=== PATIENT | male | born 1955 ===

== ENCOUNTER 2021-01-31 21:44 | Emergency (ER) | payer OTHER ==
--- OUTSIDE RECORDS SUMMARY | 2021-01-31 21:46 | XMS REPORT | Continuity of Care Document ---
:1955 [facility] Address [address] [place] [address] Care Team Providers Name Role Phone Juan Newman Attending Clinician Unavailable Sarah Smith Attending Clinician Unavailable ATILIO Attending Clinician Unavailable UNDEFINED Admitting Clinician Unavailable Payers Payer Name Policy Type Policy Number Effective Date Expiration Date S ource Problems Condition Condition Condition Status Onset Resolution Last Treating Co mments Source Name Details Category Date Date Treatment Clinician Date Primary Primary Problem Active Univers osteoarthr osteoarthr it y of itis of itis [facility] left knee left knee Phys ici ans Primary Primary Problem Active Univers osteoarthr osteoarthr it y of itis of is [facility] right knee right knee Ph ysici ans Allergies, Adverse Reactions, Alerts Allergy Allergy Status Severity Reaction(s) Onset Inactive Treating Comm ents Source Name Type Date Date Clinician No Known DA Active U 2020-0 [facility]15 [place] [facility] No Known DA Active U 2020-0 [facility] Allergie 10-15 [place] [facility] Medications Ordered Filled Start Stop Current Ordering Indication Dosage Frequency Signature Comments Components Source Medication Medication Date Date Medication? Clinician (SIG) Name Name Monovisc 88 Monovisc 88 Yes SALLIE DISPENSE Univers MG/4ML MG/4ML 3-01 TRIMBLE M.D. ONE KIT (1 ity of Intra-artic Intra-artic 00:00: SYRINGE [place] ular ular 00 4.0ML) TO Physici Solution Solution BE ans Prefilled Prefilled ADMINISTER Syringe Syringe ED BY CRICKET Moore PHYSICIAN Procedures Procedure Date / Time Performed Performing Clinician Sourc e [UTP] Ortho - 2018-02-28 00:00:00 [facility] Authorize Injection Physicians Plan of Care Planned Activity Planned Date Details Comments Source Diagnostic Test 2018-02-28 [UTP] Ortho - [facility] Pending 00:00:00 Authorize Injection Physicia ns [code = [UTP] Ortho - Authorize Injection] Encounters Start End Encounter Admission Attending Care Care Encounter Source Date/Time Date/Time Type Type Clinicians Facility Department ID 2019-10-16 2019-10-16 Outpatient YOON NewmanTO PAIN [id number] -20 [facility] 13:30:00 13:30:00 [facility] [place] [facility] 2019-09-02 2019-09-02 Outpatient YOON SmithTO RADI [id number] -20 [facility] 13:00:00 13:00:00 Ashok [id number] [place] [facility] 2019-08-26 2019-08-26 Outpatient YOON SmithTO RADI [id number] -20 [facility] 13:00:00 13:00:00 Ashok [id number] [place] [facility] 2017-10-03 2017-10-03 Appointmen SHWETA TRIMBLE UTP [id number] Univers 14:00:00 14:00:00 t; SALLIE TRIMBLE ity of MATTHEW, M.D. [place] M.D. Physici ans Results Test Description Test Time Test Comments Results Result Sourc e Comments - XR FLUORO FOR 2019-10-16 Patient Name: SPINE INJ 16:48:00 KB BRADLEY Unit No: [id number] EXAMS: CPT CODE: [id number] XR FLUORO FOR SPINE INJ 59500 LUMBAR EPIRADICULAR INJECTION REFERRAL PHYSICIAN: Ashok Smith M.D. PREOPERATIVE DIAGNOSIS: Lumbar Radiculitis POSTOPERATIVE DIAGNOSIS: Multilevel lumbar disc degeneration with spinal stenosis and bilateral lower extremity radicular pain PROCEDURES PERFORMED: Fluoroscopically guided needle localization of the bilateral L4, bilateral L5 and bilateral S1 spinal nerves with transforaminal epidurograms and epidural injection of local anesthetic and steroid. FINDINGS: Marked degeneration was seen at the L4-5 and L5-S1 discs. Very tight flow seen through the bilateral L4-5 and L5-S1 foramen. Flow was limited in the epidural space in the lateral recesses and centrally. Provocation with injection was negative. Anesthetic response was positive with the patient noting complete relief of his bilateral low back and radiating pain. Preinjection VAS 4/10. Postinjection VAS 0/10. Steroid response pending follow-up. ESTIMATED BLOOD LOSS: Minimal ANESTHESIA: TIVA COMPLICATIONS: None DETAILS OF PROCEDURE: After obtaining stable vital signs, informed consent and IV access, with no contraindications, the patient was taken to the operating room and placed in a prone position with all extremities padded and appropriate monitors placed. The patient was sterilely prepped and draped over the lumbosacral spine. Using fluoroscopic visualization the insertion sites were marked for paravertebral approaches and using standard technique, a 25 gauge needle was advanced to the base of each pedicle without paresthesias. Isovue-300 contrast 0.2 mL of was injected incrementally with frequent negative aspirations to produce each epidurogram. There were no signs of intravascular or intrathecal uptake. Bupivicaine 0.75% 0.25 mL with lidocaine 4% 0.5 mL and Decadron 4 mg was then incrementally injected with frequent negative aspirations and again there were no signs of intravascular or intrathecal uptake. The needles were removed and the patient was taken to the PACU in good condition. at 5511 Reported and signed by: Santiago Newman M.D. CC: Technologist: Darya Michael(R) Transcribed D/ (3408) Nini.[facility] NAME: KB BRADLEY JR [address] [facility] PHYS: Santiago Muro MD [place], [place] [address] : 1955 AGE: 63 SEX: M LOC: EmelinaLUCIA PHONE #: [phone] EXAM DATE: 10/16/2019 STATUS: REG [facility] FAX #: [phone] RAD #: D/C DT PAGE 1 Signed Report Patient Name: KB BRADLEY ADAM HELMS Unit No: [id number] EXAMS: CPT CODE: [id number] XR FLUORO FOR SPINE INJ 73076 <Continued> Orig Print D/T: S: 10/16/2019 (3531) [place] [facility] NAME: KB BRADLEY JR [address] [facility] PHYS: Santiago Muro MD [place], [place] [address] : 1955 AGE: 63 SEX: M LOC: DUTCH PHONE #: [phone] EXAM DATE: 10/16/2019 STATUS: REG SDC FAX #: [phone] RAD #: D/C DT PAGE 2 Signed Report - XR ORBITS 4 + V 2019-09-02 Patient Name: 16:56:00 KB BRADLEY JR Unit No: [id number] EXAMS: CPT CODE: [id number] XR ORBITS 4 + V 60024 MRI OF THE LUMBAR SPINE: DIAGNOSIS: 1. At L1-2, moderate disc degeneration. Mild disc bulging. Mild central canal stenosis. Moderate left foraminal and mild right foraminal stenosis. 2. At L2-3, moderate disc degeneration. 2 mm of retrolisthesis of L2 on L3. Mild disc bulging. Mild central canal stenosis. Moderate bilateral facet arthropathy. Moderate bilateral foraminal stenosis. 3. At L3-4, moderate disc degeneration. 2 mm disc bulge. Mild central canal stenosis. Mild bilateral facet arthropathy. Mild bilateral foraminal stenosis 4. At L4-5, mild to moderate disc degeneration. 3 mm right posterior lateral disc protrusion. Mild to moderate central canal stenosis. Moderate bilateral facet arthropathy. Moderate to marked right foraminal moderate left foraminal stenosis. 5. At L5-S1, moderate disc degeneration. Grade 1 spondylolisthesis of L5 on S1. 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 No central canal stenosis. Marked right foraminal stenosis mild to moderate left foraminal stenosis COMMENT: COMPARISON: No prior exams available. Sagittal T1, T2 and STIR and axial T1 and T2-weighted sequences are obtained of the lumbar spine. The lumbar vertebrae are within normal limits in signal. The findings are as above. The conus is in the expected location. 7 VIEW LUMBAR SPINE WITH FLEXION AND EXTENSION COMMENT: Grade 1 spondylolisthesis of L5 on S1. This is slightly more pronounced in the flexed position. Moderate degeneration lumbar discs. Pedicles and transverse processes are intact. SI joints are within normal limits. Hip joints are within normal limits. AP AND LATERAL VIEW OF THE ORBITS COMMENT: No evidence of metal fragments are seen within the orbits. [facility] NAME: KB BRADLEY JR [address] [facility] PHYS: Ashok Valdovinos MD : 1955 AGE: 63 SEX: M [place], [place] [address] LOC: Y.MRI PHONE #: [phone] EXAM DATE: 09/02/2019 STATUS: REG CLI FAX #: [phone] RAD #: D/C DT PAGE 1 Signed Report (CONTINUED) Patient Name: KB BRADLEY JR Unit No: [id number] EXAMS: CPT CODE: [id number] XR ORBITS 4 + V 72020 <Continued> at 1656 Reported and signed by: Teresa Steiner MD CC: Ashok Smith M.D. Technologist: RT Naeem.(R) Transcribed D/ (1655) [id number] [facility] NAME: KB BRADLEY JR [address] [facility] PHYS: Ashok Valdovinos MD : 1955 AGE: 63 SEX: M [place] [address] LOC: Y.MRI PHONE #: [phone] EXAM DATE: 09/02/2019 STATUS: REG CLI FAX #: [phone] RAD #: D/C DT PAGE 2 Signed Report Patient Name: KB BRADLEY JR Unit No: [id number] EXAMS: CPT CODE: [id number] XR ORBITS 4 + V 64708 <Continued> Orig Print D/T: S: 09/02/2019 (1658) [facility] NAME: KB BRADLEY JR [address] [facility] PHYS: Ashok Valdovinos MD : 1955 AGE: 63 SEX: M [place], [place] [address] LOC: Y.MRI PHONE #: [phone] EXAM DATE: 09/02/2019 STATUS: REG CLI FAX #: [phone] RAD #: D/C DT PAGE 3 Signed Report - XR L-SPINE 2019-09-02 Patient Name: W/BEND VIEW 16:56:00 KB BRADLEY JR Unit No: [id number] EXAMS: CPT CODE: [id number] XR L-SPINE W/BEND VIEW 51184 MRI OF THE LUMBAR SPINE: DIAGNOSIS: 1. At L1-2, moderate disc degeneration. Mild disc bulging. Mild central canal stenosis. Moderate left foraminal and mild right foraminal stenosis. 2. At L2-3, moderate disc degeneration. 2 mm of retrolisthesis of L2 on L3. Mild disc bulging. Mild central canal stenosis. Moderate bilateral facet arthropathy. Moderate bilateral foraminal stenosis. 3. At L3-4, moderate disc degeneration. 2 mm disc bulge. Mild central canal stenosis. Mild bilateral facet arthropathy. Mild bilateral foraminal stenosis 4. At L4-5, mild to moderate disc degeneration. 3 mm right posterior lateral disc protrusion. Mild to moderate central canal stenosis. Moderate bilateral facet arthropathy. Moderate to marked right foraminal moderate left foraminal stenosis. 5. At L5-S1, moderate disc degeneration. Grade 1 spondylolisthesis of L5 on S1. 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 No central canal stenosis. Marked right foraminal stenosis mild to moderate left foraminal stenosis COMMENT: COMPARISON: No prior exams available. Sagittal T1, T2 and STIR and axial T1 and T2-weighted sequences are obtained of the lumbar spine. The lumbar vertebrae are within normal limits in signal. The findings are as above. The conus is in the expected location. 7 VIEW LUMBAR SPINE WITH FLEXION AND EXTENSION COMMENT: Grade 1 spondylolisthesis of L5 on S1. This is slightly more pronounced in the flexed position. Moderate degeneration lumbar discs. Pedicles and transverse processes are intact. SI joints are within normal limits. Hip joints are within normal limits. AP AND LATERAL VIEW OF THE ORBITS COMMENT: No evidence of metal fragments are seen within the orbits. [facility] NAME: KB BRADLEY [address] [facility] PHYS: Ashok Valdovinos MD : 1955 AGE: 63 SEX: M [place] [address] LOC: Y.MRI PHONE #: [phone] EXAM DATE: 09/02/2019 STATUS: REG CLI FAX #: [phone] RAD #: D/C DT PAGE 1 Signed Report (CONTINUED) Patient Name: KB BRADLEY JR Unit No: [id number] EXAMS: CPT CODE: [id number] XR L-SPINE W/BEND VIEW 63469 <Continued> at 1656 Reported and signed by: Teresa Steiner MD CC: Ashok Smith M.D. Technologist: RT Naeem.(R) Transcribed D/ (1655) JodieG [facility] NAME: KB BRADLEY JR [address] [facility] PHYS: Ashok Valdovinos MD : 1955 AGE: 63 SEX: M [place] [address] LOC: Y.MRI PHONE #: [phone] EXAM DATE: 09/02/2019 STATUS: REG CLI FAX #: [phone] RAD #: D/C DT PAGE 2 Signed Report Patient Name: KB BRADLEY JR Unit No: [id number] EXAMS: CPT CODE: [id number] XR L-SPINE W/BEND VIEW 77672 <Continued> Orig Print D/T: S: 09/02/2019 (1658) [facility] NAME: KB BRADLEY JR [address] [facility] PHYS: Ashok Valdovinos MD : 1955 AGE: 63 SEX: M [place] [address] LOC: Y.MRI PHONE #: [phone] EXAM DATE: 09/02/2019 STATUS: REG CLI FAX #: [phone] RAD #: D/C DT PAGE 3 Signed Report - MRI L-SPINE W/O 2019-09-02 Patient Name: CONT 16:56:00 KB BRADLEY JR Unit No: [id number] EXAMS: CPT CODE: [id number] MRI L-SPINE W/O CONT 01233 MRI OF THE LUMBAR SPINE: DIAGNOSIS: 1. At L1-2, moderate disc degeneration. Mild disc bulging. Mild central canal stenosis. Moderate left foraminal and mild right foraminal stenosis. 2. At L2-3, moderate disc degeneration. 2 mm of retrolisthesis of L2 on L3. Mild disc bulging. Mild central canal stenosis. Moderate bilateral facet arthropathy. Moderate bilateral foraminal stenosis. 3. At L3-4, moderate disc degeneration. 2 mm disc bulge. Mild central canal stenosis. Mild bilateral facet arthropathy. Mild bilateral foraminal stenosis 4. At L4-5, mild to moderate disc degeneration. 3 mm right posterior lateral disc protrusion. Mild to moderate central canal stenosis. Moderate bilateral facet arthropathy. Moderate to marked right foraminal moderate left foraminal stenosis. 5. At L5-S1, moderate disc degeneration. Grade 1 spondylolisthesis of L5 on S1. 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 No central canal stenosis. Marked right foraminal stenosis mild to moderate left foraminal stenosis COMMENT: COMPARISON: No prior exams available. Sagittal T1, T2 and STIR and axial T1 and T2-weighted sequences are obtained of the lumbar spine. The lumbar vertebrae are within normal limits in signal. The findings are as above. The conus is in the expected location. 7 VIEW LUMBAR SPINE WITH FLEXION AND EXTENSION COMMENT: Grade 1 spondylolisthesis of L5 on S1. This is slightly more pronounced in the flexed position. Moderate degeneration lumbar discs. Pedicles and transverse processes are intact. SI joints are within normal limits. Hip joints are within normal limits. AP AND LATERAL VIEW OF THE ORBITS COMMENT: No evidence of metal fragments are seen within the orbits. [facility] NAME: KB BRADLEY ADAM HELMS [address] [facility] PHYS: Ashok Valdovinos MD : 1955 AGE: 63 SEX: M [place], [place] [address] LOC: Y.MRI PHONE #: [phone] EXAM DATE: 09/02/2019 STATUS: REG CLI FAX #: [phone] RAD #: D/C DT PAGE 1 Signed Report (CONTINUED) Patient Name: KB BRADLEY JR Unit No: [id number] EXAMS: CPT CODE: [id number] MRI L-SPINE W/O CONT 50114 <Continued> at 1656 Reported and signed by: Teresa Steiner MD CC: Ashok Smith M.D. Technologist: Fernanda Felix(R) Transcribed D/ (1655) JodieG [facility] NAME: KB BRADLEY JR [address] [facility] PHYS: Ashok Valdovinos MD : 1955 AGE: 63 SEX: M [place] [address] LOC: Y.MRI PHONE #: [phone] EXAM DATE: 09/02/2019 STATUS: REG CLI FAX #: [phone] RAD #: D/C DT PAGE 2 Signed Report Patient Name: KB BRADLEY JR Unit No: [id number] EXAMS: CPT CODE: [id number] MRI L-SPINE W/O CONT 98788 <Continued> Orig Print D/T: S: 09/02/2019 (4618) [facility] NAME: KB BRADLEY JR [address] [facility] PHYS: Ashok Valdovinos MD : 1955 AGE: 63 SEX: M [place] [address] LOC: Y.MRI PHONE #: [phone] EXAM DATE: 09/02/2019 STATUS: REG CLI FAX #: [phone] RAD #: D/C DT PAGE 3 Signed Report
[2021-01-31] MEDS ORDERED: MORPHINE 4 MG/ML SYR ONE (23:08)
[2021-01-31] MEDS ORDERED: ONDANSETRON 4 MG/2 ML VIAL ONE (23:09)
[2021-01-31 23:55] LABS: Absolute Lymphocytes (CBC) 2.3 K/uL (0.7-4.9); Basophils % 1.2 % (0-1.3); Hematocrit 41.7 % (39.6-49.0); Lymphocytes % 32.5 % (15.3-44.8); MPV 9.5 fL (7.6-11.3)
[2021-02-01 00:06] LABS: Albumin 3.6 g/dL (3.4-5.0); Bilirubin Direct 0.2 mg/dL (0-0.2); Bilirubin Total 0.5 mg/dL (0.2-1.0); Potassium 3.8 mmol/L (3.5-5.1); Protein, Total 7.5 g/dL (6.4-8.2)
[2021-02-01] MEDS ORDERED: MEPERIDINE HCL 25 MG/ML SYR ONE (00:20)
[2021-02-01 00:41] LABS: Blood Morphology Comment NOT SEEN (NOT SEEN); Platelet Estimate ADEQ; White Blood Cell Scan OK (OK)
[2021-02-01] MEDS ORDERED: NA CHLORIDE 0.9% 1,000 ML ONE (00:42)
[2021-02-01] MEDS ORDERED: FENTANYL CITR 100 MCG/2 ML ONE (00:44)
[2021-02-01 01:02] LABS: Urine Blood Trace-intact (Negative); Urine Glucose Trace (Negative); Urine Protein Negative (Negative); Urine pH 6.5 (5.0-7.0)
--- NOTE | 2021-02-01 02:02 | ER ---
Nurse's Notes [facility] Name: Eugene Phillip Jr Age: 65 yrs Sex: Male : 1955 Arrival Date: 01/31/2021 Time: 21:54 Bed 24 Private MD: Diagnosis: Kidney Stone/ Calculus in urethra;Hydronephrosis with renal and ureteral calculous obstruction;Renal insufficiency Presentation: 01/31 21:58 Chief complaint: Patient states: I began having pain this evening around 1900 in my ld1 left flank. Constant urge to urinate X 1 day. Coronavirus screen: At this time, the client does not indicate any symptoms associated with coronavirus-19. Ebola Screen: No symptoms or risks identified at this time. Initial Sepsis Screen: Does the patient meet any 2 criteria? No. Patient's initial sepsis screen is negative. Does the patient have a suspected source of infection? No. Patient's initial sepsis screen is negative. Risk Assessment: Do you want to hurt yourself or someone else? Patient reports no desire to harm self or others. Onset of symptoms was January 31, 2021. 21:58 Method Of Arrival: Ambulatory ld1 21:58 Acuity: ALESHA 4 ld1 23:00 Acuity: ALESHA 3 lp1 Triage Assessment: 21:59 General: Appears in no apparent distress. comfortable. Pain: Complains of pain in left ld1 low back. Respiratory: Airway is patent Respiratory effort is even, unlabored. 02/01 01:20 General: Behavior is cooperative, restless. sv1 Historical: - Allergies: 01/31 21:59 No Known Allergies; ld1 - Home Meds: 21:59 levothyroxine oral [Active]; gabapentin oral [Active]; Norvasc 5 mg Oral tab 1 tab once ld1 daily [Active]; - PMHx: 21:59 Hypertensive disorder; Hypercholesterolemia; neuropathy; Hypothyroidism; ld1 - PSHx: 21:59 None; ld1 - Immunization history:: Adult Immunizations up to date, Client reports receiving the 2nd dose of the Covid vaccine. - Social history:: Smoking status: Patient denies any tobacco usage or history of. Patient/guardian denies using alcohol. Screenin/21 01:18 Abuse screen: none. Nutritional screening: No deficits noted. Tuberculosis screening: sv1 No symptoms or risk factors identified. Fall Risk None identified. Assessment: 01:18 Reassessment: The patient's pain is finally relieved. Tolerating IV fluids well.. GI: sv1 Bowel sounds present X 4 quads. 01:21 GI: Abdomen is tender to palpation X 4 quads. sv1 Vital Signs: 01/31 21:58 BP 174 / 93; Pulse 76; Resp 18; Temp 98.4(TE); Pulse Ox 98% on R/A; Weight 77.11 kg; ld1 Height 5 ft. 7 in. (170.18 cm); Pain 6/10; 02/01 01:17 BP 141 / 76; Pulse 68; Resp 18; Pulse Ox 97% 0 lpm ; Pain 2/10; sv1 01/31 21:58 Body Mass Index 26.63 (77.11 kg, 170.18 cm) ld1 ED Course: 01/31 21:54 Patient arrived in ED. bp1 21:56 John Mike MD is Attending Physician. kdr 21:59 Triage completed. ld1 21:59 Arm band placed on right wrist. ld1 22:34 Rosalio Mariano RN is Primary Nurse. sv1 23:33 Basic Metabolic Panel Sent. sv1 23:33 CBC with Diff Sent. sv1 23:33 Hepatic Function Sent. sv1 23:33 Lipase Sent. sv1 23:47 CT Stone Protocol In Process Unspecified. EDMS 02/01 01:18 Patient has correct armband on for positive identification. Bed in low position. Call sv1 light in reach. Side rails up X2. 01:18 No provider procedures requiring assistance completed. Inserted saline lock: 20 gauge sv1 in left antecubital area, using aseptic technique. 02:11 IV discontinued. sv1 Administered Medications: 01/31 23:16 Drug: morphine 4 mg Route: IVP; Site: left antecubital; sv1 23:34 Follow up: Response: Pain is decreased sv1 02/01 01:16 Follow up: Response: Pain is unchanged, physician notified sv1 01/31 23:16 Drug: Zofran (Ondansetron) 4 mg Route: IVP; Site: left antecubital; sv1 23:34 Follow up: Response: Nausea is decreased sv1 02/01 01:16 Follow up: Response: Nausea is decreased sv1 00:23 Drug: Demerol (meperidine) 25 mg Route: IVP; Site: left antecubital; sv1 01:15 Follow up: Response: No adverse reaction; Pain is unchanged, physician notified sv1 00:52 Drug: fentaNYL (PF) 25 mcg Route: IVP; Site: left antecubital; sv1 01:15 Follow up: Response: Pain is decreased sv1 00:53 Drug: NS 0.9% 1000 ml Route: IV; Rate: 1 bolus; Site: left antecubital; sv1 02:11 Follow up: IV Status: Completed infusion; IV Intake: 1000ml sv1 Intake: 02:11 IV: 1000ml; Total: 1000ml. sv1 Outcome: 02:00 Discharge ordered by . kdr 02:10 Discharged to home ambulatory, with family. sv1 02:10 Condition: improved 02:10 Discharge instructions given to patient, family. 02:12 Patient left the ED. sv1 Signatures: Dispatcher [employer] EDMS John Mike MD MD kdr Pena, Laura, RN RN lp1 Minda Forbes Lauren, CAROLYN RN ld1 Rosalio Mariano RN RN sv1
--- NOTE | 2021-02-01 02:02 | EDPHYS ---
Physician Documentation [facility] Name: Eugene Phillip Jr Age: 65 yrs Sex: Male : 1955 Arrival Date: 01/31/2021 Time: 21:54 Bed 24 Private MD: ED Physician John Mike HPI: 02/01 02:15 This 65 yrs old Male presents to ER via Ambulatory with complaints of kdr Possible Kidney Stone. 01:54 The patient presents with abdominal pain Left flank and left lower quadrant. Onset: The kdr symptoms/episode began/occurred suddenly, just prior to arrival, today. The symptoms radiate to the left flank, left lower quadrant. Associated signs and symptoms: Pertinent positives: nausea, Pertinent negatives: anorexia, blood in stools, chest pain, constipation, diarrhea, dysuria, fever, headache, hematuria, palpitations, shortness of breath, testicular pain, vomiting, vomiting blood. The symptoms are described as achy, dull, vague. Modifying factors: The symptoms are alleviated by nothing, the symptoms are aggravated by nothing. Severity of pain: At its worst the pain was mild moderate just prior to arrival, in the emergency department the pain has resolved. The patient has experienced a previous episode, approximately 30 years ago. Patient states that he was at home tonight when he started to have pain on his left flank. Initially was vague and mild but has become persistent and more severe. Not radiates into his left groin. He had a kidney stone about 30 years ago and recalls that the onset and presentation was similar. Historical: - Allergies: 01/31 21:59 No Known Allergies; ld1 - Home Meds: 21:59 levothyroxine oral [Active]; gabapentin oral [Active]; Norvasc 5 mg Oral tab 1 tab once ld1 daily [Active]; - PMHx: 21:59 Hypertensive disorder; Hypercholesterolemia; neuropathy; Hypothyroidism; ld1 - PSHx: 21:59 None; ld1 - Immunization history:: Adult Immunizations up to date, Client reports receiving the 2nd dose of the Covid vaccine. - Social history:: Smoking status: Patient denies any tobacco usage or history of. Patient/guardian denies using alcohol. ROS: 02/01 01:54 Constitutional: Negative for fever, chills, and weight loss, Eyes: Negative for injury, kdr pain, redness, and discharge, ENT: Negative for injury, pain, and discharge, Neck: Negative for injury, pain, and swelling, Cardiovascular: Negative for chest pain, palpitations, and edema, Respiratory: Negative for shortness of breath, cough, wheezing, and pleuritic chest pain, : Negative for injury, bleeding, discharge, and swelling, MS/Extremity: Negative for injury and deformity, Skin: Negative for injury, rash, and discoloration, Neuro: Negative for headache, weakness, numbness, tingling, and seizure activity. Psych: Negative for depression, anxiety, suicide ideation, homicidal ideation, and hallucinations, Allergy/Immunology: Negative for hives, rash, and allergies, Endocrine: Negative for neck swelling, polydipsia, polyuria, polyphagia, and marked weight changes, Hematologic/Lymphatic: Negative for swollen nodes, abnormal bleeding, and unusual bruising. Abdomen/GI: Positive for nausea, of the anterior aspect of left lateral abdomen, posterior aspect of left lateral abdomen and left lower quadrant. : Positive for Negative for injury or acute deformity, urinary symptoms, urinary frequency, small amounts, hematuria, pelvic pain, flank pain. Exam: 01:54 Constitutional: This is a well developed, well nourished patient who is awake, alert, kdr and in no acute distress. Head/Face: Normocephalic, atraumatic. Eyes: Pupils equal round and reactive to light, extra-ocular motions intact. Lids and lashes normal. Conjunctiva and sclera are non-icteric and not injected. Cornea within normal limits. Periorbital areas with no swelling, redness, or edema. Neck: Trachea midline, no thyromegaly or masses palpated, and no cervical lymphadenopathy. Supple, full range of motion without nuchal rigidity, or vertebral point tenderness. No Meningismus. Chest/axilla: Normal chest wall appearance and motion. Nontender with no deformity. No lesions are appreciated. Cardiovascular: Regular rate and rhythm with a normal S1 and S2. No gallops, murmurs, or rubs. Normal PMI, no JVD. No pulse deficits. Respiratory: Lungs have equal breath sounds bilaterally, clear to auscultation and percussion. No rales, rhonchi or wheezes noted. No increased work of breathing, no retractions or nasal flaring. Abdomen/GI: Soft, non-tender, with normal bowel sounds. No distension or tympany. No guarding or rebound. No evidence of tenderness throughout. Back: No spinal tenderness. No costovertebral tenderness. Full range of motion. Skin: Warm, dry with normal turgor. Normal color with no rashes, no lesions, and no evidence of cellulitis. MS/ Extremity: Pulses equal, no cyanosis. Neurovascular intact. Full, normal range of motion. Neuro: Awake and alert, GCS 15, oriented to person, place, time, and situation. Cranial nerves II-XII grossly intact. Motor strength 5/5 in all extremities. Sensory grossly intact. Cerebellar exam normal. Normal gait. Psych: Awake, alert, with orientation to person, place and time. Behavior, mood, and affect are within normal limits. 01:54 Cardiovascular: Heart sounds: murmur, systolic, grade 2 over 6. 01:54 Abdomen/GI: Inspection: abdomen appears normal, Bowel sounds: active, all quadrants, Palpation: soft, in all quadrants, mild abdominal tenderness, in the left lower quadrant. Vital Signs: 01/31 21:58 BP 174 / 93; Pulse 76; Resp 18; Temp 98.4(TE); Pulse Ox 98% on R/A; Weight 77.11 kg; ld1 Height 5 ft. 7 in. (170.18 cm); Pain 6/10; 02/01 01:17 BP 141 / 76; Pulse 68; Resp 18; Pulse Ox 97% 0 lpm ; Pain 2/10; sv1 01/31 21:58 Body Mass Index 26.63 (77.11 kg, 170.18 cm) ld1 MDM: 01:54 Data reviewed: vital signs, nurses notes, lab test result(s), radiologic studies. kdr Counseling: I had a detailed discussion with the patient and/or guardian regarding: the historical points, exam findings, and any diagnostic results supporting the discharge/admit diagnosis, lab results, radiology results, the need for outpatient follow up. ED course: The patient responded well to fentanyl. Unfortunately Toradol and Demerol did not have much effect on his pain initially. Patient at the time of discharge was completely pain-free. Patient and family were happy with the care provided the plan for discharge and follow-up. 02:00 Patient medically screened. kdr 01/31 23:05 Order name: Basic Metabolic Panel; Complete Time: 00:35 kdr 01/31 23:05 Order name: CBC with Diff; Complete Time: 00:47 kdr 01/31 23:05 Order name: Hepatic Function; Complete Time: 00:35 kdr 01/31 23:05 Order name: Lipase; Complete Time: 00:35 kdr 01/31 23:56 Order name: CBC Smear Scan; Complete Time: 00:47 EDMS 02/01 01:01 Order name: Urine Dipstick-Ancillary; Complete Time: 02:21 EDMS 01/31 23:05 Order name: IV Saline Lock; Complete Time: 23:16 kdr 01/31 23:05 Order name: Labs collected and sent; Complete Time: 23:16 kdr 01/31 23:05 Order name: CT Stone Protocol kdr 02/01 00:36 Order name: Urine Dipstick-Ancillary (obtain specimen); Complete Time: 01:15 kdr Administered Medications: 01/31 23:16 Drug: morphine 4 mg Route: IVP; Site: left antecubital; sv1 23:34 Follow up: Response: Pain is decreased sv1 02/01 01:16 Follow up: Response: Pain is unchanged, physician notified sv1 01/31 23:16 Drug: Zofran (Ondansetron) 4 mg Route: IVP; Site: left antecubital; sv1 23:34 Follow up: Response: Nausea is decreased sv1 02/01 01:16 Follow up: Response: Nausea is decreased sv1 00:23 Drug: Demerol (meperidine) 25 mg Route: IVP; Site: left antecubital; sv1 01:15 Follow up: Response: No adverse reaction; Pain is unchanged, physician notified sv1 00:52 Drug: fentaNYL (PF) 25 mcg Route: IVP; Site: left antecubital; sv1 01:15 Follow up: Response: Pain is decreased sv1 00:53 Drug: NS 0.9% 1000 ml Route: IV; Rate: 1 bolus; Site: left antecubital; sv1 02:11 Follow up: IV Status: Completed infusion; IV Intake: 1000ml sv1 Disposition Summary: 02/01/21 02:00 Discharge Ordered Location: Home kdr Problem: new kdr Symptoms: are resolved kdr Condition: Stable kdr Diagnosis - Kidney Stone/ Calculus in urethra kdr - Hydronephrosis with renal and ureteral calculous obstruction kdr - Renal insufficiency kdr Followup: kdr - With: Private Physician - When: 2 - 3 days - Reason: If symptoms return, Further diagnostic work-up, Recheck today's complaints, Continuance of care, Re-evaluation by your physician Discharge Instructions: - Discharge Summary Sheet kdr - Kidney Stones, [id number] kdr - Hydronephrosis kdr Forms: - Medication Reconciliation Form kdr - Thank You Letter kdr - Antibiotic Education kdr - Prescription Opioid Use kdr Prescriptions: - Flomax 0.4 mg Oral capsule - take 1 capsule by ORAL route once daily 1/2 hour following the same meal each kdr day; 10 capsule; Refills: 0, Product Selection Permitted - Zofran 4 mg Oral Tablet - take 1 tablet by ORAL route every 4-6 hours As needed; 12 tablet; Refills: 0, kdr Product Selection Permitted - Bactrim DS 800-160 mg Oral Tablet - take 1 tablet by ORAL route every 12 hours for 3 days; 6 tablet; Refills: 0, kdr Product Selection Permitted - Tylenol-Codeine #3 300 mg-30 mg Oral - take 1 tablet by ORAL route every 4-6 hours As needed; 12 tablet; Refills: 0, kdr Product Selection Permitted Signatures: Dispatcher [employer] EDJohn Astorga MD MD kdr Ciara Wei, RN RN ld1 Rosalio Mariano, RN RN sv1
[2021-02-01 02:18] VITALS: TEMP 98.4
[2021-02-01 02:20] VITALS: BP 141/76; O2SAT 97
--- NOTE | 2021-02-01 14:57 | RAD REPORT ---
EXAM DESCRIPTION: CT - Stone Protocol - 02/01/2021 6:44 am ADDENDUM #1 Clarification: There is left hydronephrosis. The urinary bladder calculus is immediately adjacent to or possibly even within the left UVJ and is responsible for the hydronephrosis. Electronically signed by: Alex Stern MD 02/01/2021 1:34 AM [employer]ERK End of Addendum CLINICAL HISTORY: FLANK PAIN COMPARISON: None. TECHNIQUE: CT ABDOMEN PELVIS WITHOUT IV CONTRAST on 01/31/2021 11:05 PM [employer]ERK This exam was performed according to our departmental dose-optimization program, which includes autom ated exposure control, adjustment of the mA and/or kV according to patient size and/or use of iterati ve reconstruction technique. FINDINGS: Lower lungs are clear. Abdomen: The liver is normal in appearance. There is no biliary dilatation. There is a small hiatal h ernia. Gallbladder is normally distended. The pancreas and spleen are normal in appearance. Adrenal g lands are normal. Both kidneys are mildly atrophic. Right kidney contains at least seven calculi coleman uring up to 3 mm. Left kidney contains at least four 1 to 2 mm calculi. There is mild to moderate lef t hydronephrosis. There is no right hydronephrosis. Abdominal aorta is normal in course and caliber without aneurysm. There is no free air. There is no r etroperitoneal adenopathy. Pelvis: There is no bowel obstruction. There is a 2 mm calculus within the urinary bladder near the l eft UVJ. There is no free fluid. Appendix is normal. Skeleton: There are no acute osseous findings. No suspicious bony lesions. IMPRESSION: Bilateral nephrolithiasis with a mildly obstructing 2 mm calculus in the urinary bladder near the left UVJ. Electronically signed by: Alex Stern MD 02/01/2021 12:05 AM [employer] CLERK Due to temporary technical issues with the PACS/Fluency reporting system, reports are being signed by the in house radiologists without review as a courtesy to insure prompt reporting. The interpreting radiologist is fully responsible for the content of the report.
== END 2021-02-01 02:12 | disposition home or self-care (01) ==
LOC: ER 21:44
DX: N21.1 Calculus in urethra (principal); N13.2 Hydronephrosis with renal and ureteral calculous obstruction; N28.9 Disorder of kidney and ureter, unspecified; I10 Essential (primary) hypertension; E03.9 Hypothyroidism, unspecified
CPT/HCPCS: 96361; 85025; 80048; 36415; 80076; 81003; 83690; 76377; 74176; 96375; 96374; 99284; J3010; J2175; J7030; J2405

== ENCOUNTER 2022-09-24 06:24 | Emergency (ER) | payer OTHER ==
--- OUTSIDE RECORDS SUMMARY | 2022-09-24 06:32 | XMS REPORT | Continuity of Care Document ---
:1955 Author Organization [facility] t Address [address] [place] [address] Care Team Providers Name Role Phone Santiago Newman Attending Clinician Unavailable Ashok Smith Attending Clinician Unavailable SALLIE TRIMBLE M.D. Attending Clinician Unavailable Manish Adams Attending Clinician Taty Cramer Attending Clinician UNDEFINED Admitting Clinician Unavailable Payers Payer Name Policy Type Policy Number Effective Date Expiration Date S ource Problems Condition Condition Condition Status Onset Resolution Last Treating Co mments Source Name Details Category Date Date Treatment Clinician Date CHEST PAIN CHEST Diagnosis Active 2015-022016-02-08 Memoria PAIN 04-10 17:39:00 l Active 00:00: Greyson 02/08/2016 00 [facility] Greyson G62.9 - G62.9 - Diagnosis Active 2015-11-21 Memoria "POLYNEURO "POLYNEURO 09-09 16:10:00 l AMINAH BURR, 00:01: Greyson UNSPECIFIE UNSPECIFIE 00 D" D" Active 09/10/2015 John Cornejo Primary Primary Problem Active [facility] osteoarthr osteoarth[facility] left knee left knee Acute low Acute low Problem Resolve 2018-03-17 Memoria back pain back pain d 14:24:54 l (disorder) (disorder) Xander castañeda Resolved Problem 03/17/2018 [facility] Cramp in Cramp in Problem Resolve 2018-03-17 Memoria foot foot d 14:24:54 l (finding) (finding) Herm salina Resolved Problem 03/17/2018 [facility] Hypertensi Problem Resolve 2018-03-17 Memoria ve Hypertensi d 14:24:54 l disorder, ve [place] systemic disorder, arterial systemic (disorder) arterial (disorder) Resolved Problem 03/17/2018 [facility] Numbness Numbness Problem Resolve 2018-03-17 Memoria of lower of lower d 14:24:54 l limb limb Greyson (finding) (finding) Resolved Problem 03/17/2018 [facility] Numbness Numbness Problem Resolve 2018-03-17 Memoria of toe of toe d 14:24:54 l (finding) (finding) Herm salina Resolved Problem 03/17/2018 [facility] Primary Primary Problem Active [place] osteoarthr osteoarthr [facility] right knee right knee Allergies, Adverse Reactions, Alerts Allergy Allergy Status Severity Reaction(s) Onset Inactive Treating Comm ents Source Name Type Date Date Clinician No Known DA Active U 2020-0 [facility] 10-15 [place] [facility] No Known DA Active U 2020-0 [facility] Allergie 10-15 [place] [facility] Social History Social Habit Start Date Stop Date Quantity Comments Source Social History 2017-04-20 2017-04-20 [facility] Juan M valente 20:23:53 20:23:53 Medications Ordered Filled Start Stop Current Ordering Indication Dosage Frequency Signature Comments Components Source Medication Medication Date Date Medication? Clinician (SIG) Name Name Monovisc 88 Monovisc 88 Yes SALLIE DISPENSE [place] MG/4ML MG/4ML 3-01 TRIMBLE M.D. ONE KIT (1 [facility] Intra-artic Intra-artic 00:00: SYRINGE ans ular ular 00 4.0ML) TO Solution Solution BE Prefilled Prefilled ADMINISTER Syringe Syringe ED BY CRICKET Moore PHYSICIAN pregabalin Yes 50 mg = 1 Me moria 50 MG Oral 7-16 cap, PO, l Capsule 14:44: TID, # 90 Migdalia nn [Lyrica] 00 cap, 3 Refill(s) pregabalin Yes See Memoria 50 MG Oral 4-11 Instructio l Capsule 22:05: ns, 1 cap Migdalia nn [Lyrica] 00 PO TID, # 90 cap, 2 Refill(s) Lidocaine Yes See Memoria 0.05 MG/MG 04-20 Instructio l Topical 21:26: ns, 1 appl Herm salina Ointment 00 TOP to feet every night as needed for pain, # 50 gm, 2 Refill(s), Pharmacy: [id number] pregabalin Yes See Memoria 50 MG Oral 04-20 Instructio l Capsule 21:26: ns, 1 cap Migdalia nn [Lyrica] 00 PO bedtime then 1 cap Po BID, then 1 cap PO TID thereafter Decrease Gabapentin as instructed , # 90 cap, 2 Refill(s) lidocaine Yes See Memoria topical 5% 04-20 Instructio l ointment 21:26: ns, 1 appl Her galvan 00 TOP to feet every night as needed for pain, # 50 gm, 2 Refill(s), Pharmacy: [facility][id number] Cialis Yes PO, Daily, Memor ia 04-20 0 l 20:25: Refill(s) [place] 00 Vital Signs Vital Name Observation Time Observation Value Comments Source Weight 2017-04-20 20:10:00 [facility] [place] BMI Calculated 2017-04-20 20:10:00 Memori al [place] Height 2017-04-20 20:10:00 170[facility]18 [facility] 2017-04-20 20:10:00 [facility] [place] Systolic (mm Hg) 2017-04-20 20:10:00 Matthew rial [place] Diastolic (mm Hg) 2017-04-20 20:10:00 Mem orial [place] BMI Calculated 2016-02-08 22:55:00 Memori al [place] Height 2016-02-08 22:55:00 170.18 cm [facility] [place] Temperature Oral (F) 2016-02-08 22:55:00 98.0 F [facility] [place] Weight 2016-02-08 22:55:00 [facility] [place] Systolic (mm Hg) 2016-02-08 22:55:00 Matthew rial [place] Diastolic (mm Hg) 2016-02-08 22:55:00 Mem orial [place] Heart Rate 2016-02-08 22:55:00 [facility] [place] Respitory Rate 2016-02-08 22:55:00 Yobani Bal Procedures Procedure Date / Time Performed Performing [facility] - Authorize 2018-02-28 00:00:00 [facility] Injection Miscellaneous operations Erin Rubi Plan of Care Planned Activity Planned Date Details Comments Source Diagnostic Test 2018-02-28 00:00:00 [UTP] Ortho - [facility]ys[facility] Pending Authorize Injection [code = [UTP] Ortho - Authorize Injection] Encounters Start End Encounter Admission Attending Care Care Encounter Source Date/Time Date/Time Type Type Clinicians Facility Department ID 2019-10-16 2019-10-16 Outpatient ROXANA Newman PAIN [id number] [facility] 13:30:00 13:30:00 Santiago [facility] [place] [facility] 2019-09-02 2019-09-02 Outpatient ROXANA Smith RADI [id number] [facility] 13:00:00 13:00:00 Ashok Melissa [place] [facility] 2017-10-03 2017-10-03 Appointmen SHWETA TRIMBLE UTP [id number] [place] 14:00:00 14:00:00 t; SALLIE TRIMBLE, Phys Margarette Hernandez M.D. 2017-08-27 2017-08-29 Phone nullFlavo MNA Spine [id number] Memoria 14:27:00 04:59:59 Message r Clinic [facility] 05 [facility] 2017-08-27 2017-08-28 Outpatient MHMISCHER MHMISCHER [id number] 09:27:00 23:59:59 05 2017-06-22 2017-06-22 Ambulatory nullFlavo [facility] Spine [id number] Memoria 18:30:00 18:30:00 Pre-Reg r Clinic [facility] 03 araceli [place] 2017-06-22 2017-06-22 Outpatient MHIE MHIE [id number] [facility] 13:30:00 13:30:00 araceli Rubi 2017-06-22 2017-06-22 Outpatient ANABEL AdamsMISCHER [id number] 13:30:00 13:30:00 Manish Carlson 2017-06-22 2017-06-22 Outpatient Burish, MHMISCHER MHMISCHER [id number] 13:30:00 13:30:00 Manish Carlson 2017-06-01 2017-06-03 Phone nullFlavo MNA [id number] [facility] 15:08:00 04:59:59 Message r Neurosurger 03 l y [facility] 2017-06-01 2017-06-02 Outpatient MHMISCHER MHMISCHER [id number] 10:08:00 23:59:59 2017-05-23 2017-05-25 Phone nullFlavo MNA Spine [id number] Memoria 22:02:00 04:59:59 Message r Clinic [facility] 02 araceli [place] 2017-05-23 2017-05-24 Outpatient MHMISCHER MHMISCHER [id number] 17:02:00 23:59:59 2017-05-23 2017-05-24 Outpatient MHMISCHER MHMISCHER [id number] 17:02:00 23:59:59 2017-04-24 2017-04-26 Phone nullFlavo MNA Spine [id number] [facility] 20:50:00 04:59:59 Message r Clinic [facility] araceli [place] 2017-04-24 2017-04-25 Outpatient MHMISCHER MHMISCHER [id number] 15:50:00 23:59:59 2017-04-20 2017-04-21 Outpatient nullFlavo [facility]NA Spine [id number] Memoria 19:30:00 05:59:59 r [facility] 02 araceli [place] 2017-04-20 2017-04-20 Outpatient Bonillaish, MHMISCHER MHMISCHER [id number] 13:30:00 23:59:59 Manish Carlson 2017-04-20 2017-04-20 Outpatient Burish, MHMISCHER MHMISCHER [id number] 13:30:00 23:59:59 Manish Carlson 2017-04-20 2017-04-20 Outpatient MHIE MHIE [id number] [facility] 13:30:00 13:30:00 02 araceli [place] 2017-03-21 2017-03-23 Phone nullFlavo MNA Spine [id number] Memoria 21:37:00 05:59:59 Message r Clinic [facility] 00 [facility] 2017-03-21 2017-03-22 Outpatient MHMISCHER [facility] [id number] 15:37:00 23:59:59 00 2016-02-08 2016-02-09 Emergency [facility] [id number] [facility] 22:53:00 02:24:00 r [place] 01 l [facility] [place] [facility] 2016-02-08 2016-02-08 Outpatient DIONNE Cramer [facility] [id number] 16:53:00 20:24:00 Taty 01 Oyeyemi Results Test Description Test Time Test Comments Results Result Sour e Comments - XR FLUORO FOR 2019-10-16 Patient Name: SPINE INJ 16:48:00 KB BRADLEY JR Unit No: [id number] EXAMS: CPT CODE: [id number] XR FLUORO FOR SPINE INJ 80301 LUMBAR EPIRADICULAR INJECTION REFERRAL PHYSICIAN: Ashok Smith [...] to the PACU in good condition. at 1648 Reported and signed by: Santiago Newman M.D. CC: Technologist: Darya Michael(R) Transcribed D/ (1647) [facility] [place] NAME: KB BRADLEY JR [address] [facility] PHYS: Santiago Muro MD [place], [place] [address] : 1955 AGE: 63 SEX: M LOC: DUTCH PHONE #: [phone] EXAM DATE: 10/16/2019 STATUS: REG [facility] FAX #: [phone] RAD #: D/C DT PAGE 1 Signed Report Patient Name: KB BRADLEY JR Unit No: [id number] EXAMS: CPT CODE: [id number] XR FLUORO FOR SPINE INJ 03095 (Continued) Orig Print D/T: S: 10/16/2019 (1650) [place] [facility] [place] NAME: KB BRADLEY JR [address] [facility] PHYS: Santiago Muro MD [place], [place] [address] : 1955 AGE: 63 SEX: M LOC: DUTCH PHONE #: [phone] EXAM DATE: 10/16/2019 STATUS: REG [facility] FAX #: [phone] RAD #: D/C DT PAGE 2 Signed Report - XR ORBITS 4 + V 2019-09-02 Patient Name: 16:56:00 KB BRADLEY JR Unit No: [id number] EXAMS: CPT CODE: [id number] XR ORBITS 4 + V 40279 MRI OF THE LUMBAR SPINE: DIAGNOSIS: 1. [...] metal fragments are seen within the orbits. [facility] NAME: KB BRADLYE JR [address] [facility] PHYS: Ashok Valdovinos MD : 1955 AGE: 63 SEX: M [place], [place] [address] LOC: Y.MRI PHONE #: [phone] EXAM DATE: 09/02/2019 STATUS: REG CLI FAX #: [phone] RAD #: D/C DT PAGE 1 Signed Report (CONTINUED) Patient Name: KB BRADLEY JR Unit No: [id number] EXAMS: CPT CODE: [id number] XR ORBITS 4 + V 71426 (Continued) at 1656 Reported and signed by: Teresa Steiner MD CC: Ashok Smith M.D. Technologist: RT. Naeem(R) Transcribed D/ (1655) DeannaGVG [facility] NAME: KB BRADLEY JR [address] [facility] PHYS: Ashok Valdovinos MD : 1955 AGE: 63 SEX: M [place] [address] LOC: Y.MRI PHONE #: [phone] EXAM DATE: 09/02/2019 STATUS: REG CLI FAX #: [phone] RAD #: D/C DT PAGE 2 Signed Report Patient Name: KB BRADLEY JR Unit No: [id number] EXAMS: CPT CODE: [id number] XR ORBITS 4 + V 46667 (Continued) Orig Print D/T: S: 09/02/2019 (1658) [facility] NAME: KB BRADLEY JR [address] [facility] PHYS: Ashok Valdovinos MD : 1955 AGE: 63 SEX: M [place] [address] LOC: Y.MRI PHONE #: [phone] EXAM DATE: 09/02/2019 STATUS: REG CLI FAX #: [phone] RAD #: D/C DT PAGE 3 Signed Report - XR L-SPINE 2019-09-02 Patient Name: W/BEND VIEW 16:56:00 KB BRADLEY JR Unit No: [id number] EXAMS: CPT CODE: [id number] XR L-SPINE W/BEND VIEW 18581 MRI OF THE LUMBAR SPINE: DIAGNOSIS: 1. [...] metal fragments are seen within the orbits. [facility] NAME: KB BRADLEY JR [address] [facility] PHYS: Ashok Valdovinos MD : 1955 AGE: 63 SEX: M [place] [address] LOC: Y.MRI PHONE #: [phone] EXAM DATE: 09/02/2019 STATUS: REG CLI FAX #: [phone] RAD #: D/C DT PAGE 1 Signed Report (CONTINUED) Patient Name: KB BRADLYE JR Unit No: [id number] EXAMS: CPT CODE: [id number] XR L-SPINE W/BEND VIEW 94830 (Continued) at 1656 Reported and signed by: Teresa Steiner MD CC: Ashok Smith M.D. Technologist: RT. Naeem(R) Transcribed D/ (139) DeannaGVG [facility] NAME: KB BRADLEY JR [address] [facility] PHYS: Ashok Valdovinos MD : 1955 AGE: 63 SEX: M [place], [place] [address] LOC: Y.MRI PHONE #: [phone] EXAM DATE: 09/02/2019 STATUS: REG CLI FAX #: [phone] RAD #: D/C DT PAGE 2 Signed Report Patient Name: KB BRADLEY JR Unit No: [id number] EXAMS: CPT CODE: [id number] XR L-SPINE W/BEND VIEW 55216 (Continued) Orig Print D/T: S: 09/02/2019 (1659) [facility] NAME: KB BRADLEY JR [address] [facility] PHYS: Ashok Valdovinos MD : 1955 AGE: 63 SEX: M [place] [address] LOC: Y.MRI PHONE #: [phone] EXAM DATE: 09/02/2019 STATUS: REG CLI FAX #: [phone] RAD #: D/C DT PAGE 3 Signed Report - MRI L-SPINE W/O 2019-09-02 Patient Name: CONT 16:56:00 KB BRADLEY JR Unit No: [id number] EXAMS: CPT CODE: [id number] MRI L-SPINE W/O CONT 39352 MRI OF THE LUMBAR SPINE: DIAGNOSIS: 1. [...] metal fragments are seen within the orbits. [facility] NAME: KB BRADLEY JR [address] [facility] PHYS: Ashok Valdovinos MD : 1955 AGE: 63 SEX: M [place] [address] LOC: Y.MRI PHONE #: [phone] EXAM DATE: 09/02/2019 STATUS: REG CLI FAX #: [phone] RAD #: D/C DT PAGE 1 Signed Report (CONTINUED) Patient Name: KB BRADLEY JR Unit No: [id number] EXAMS: CPT CODE: [id number] MRI L-SPINE W/O CONT 04939 (Continued) at 1656 Reported and signed by: Teresa Steiner MD CC: Ashok Smith M.D. Technologist: Fernanda Felix(R) Transcribed D/ (1655) DeannaGVG [facility] NAME: KB BRADLEY JR [address] [facility] PHYS: Ashok Valdovinos MD : 1955 AGE: 63 SEX: M [place] [address] LOC: Y.MRI PHONE #: [phone] EXAM DATE: 09/02/2019 STATUS: REG CLI FAX #: [phone] RAD #: D/C DT PAGE 2 Signed Report Patient Name: KB BRADLEY JR Unit No: [id number] EXAMS: CPT CODE: [id number] MRI L-SPINE W/O CONT 66008 (Continued) Orig Print D/T: S: 09/02/2019 (1659) [facility] NAME: KB BRADLEY JR [address] [facility] PHYS: Ashok Valdovinos MD : 1955 AGE: 63 SEX: M [place], [place] [address] LOC: Y.MRI PHONE #: [phone] EXAM DATE: 09/02/2019 STATUS: REG CLI FAX #: [phone] RAD #: D/C DT PAGE 3 Signed Report CARDIAC ENZYMES 2016-02-08 23:34:00 Test Item Value Reference Range Interpretation Comme nts Troponin-I (test code = no gt See_Comment [Au tomated message] The system Troponin-I) which generated this result transmitted ref erence range: <=0.40. The ref erence range was not used to interpr et this result as normal/abnormal . ONE RECOVERYannCARDIAC [id number] 23:34:00 Test Item Value Reference Range Interpretation Comments Total CK (test code = Total CK) 140 12-191 [facility] HospitalSecant TherapeuticsCARmPATHAC [id number] 23:34:00 Test Item Value Reference Range Interpretation Comments CK MB (test code = CK MB) 3.1 0.5-3.6 [facility] ScannxannCARDIAC [id number] 23:34:00 Test Item Value Reference Range Interpretation Comments CK-MB INDEX (test 2.2 See_Comment [Automate d message] The code = CK-MB INDEX) system w [facility] generated this result transmit duc reference range : <=2.5. The reference range was not used to interpr et this result as lenka l/abnormal. [employer] [id number] 23:34:00 Test Item Value Reference Range Interpretation Comments eGFR (test code = eGFR) 56 [facility] ScannxannHealthQx [id number] 23:34:00 Test Item Value Reference Range Interpretation Comments Globulin (test code = Globulin) 3.6 2.7-4.2 [facility]2016-12-27 23:34:00 Test Item Value Reference Range Interpretation Comments Creatinine Lvl (test code = Creatinine 1.36 0.50-1.40 Lvl) [facility]2016-12-27 23:34:00 Test Item Value Reference Range Interpretation Comments B/C Ratio (test code = B/C Ratio) 19 6-25 [facility]2016-12-27 23:34:00 Test Item Value Reference Range Interpretation Comments Chloride Lvl (test code = Chloride Lvl) 106 95-109 [facility]2016-12-27 23:34:00 Test Item Value Reference Range Interpretation Comments Sodium Lvl (test code = Sodium Lvl) 145 135-145 [facility]2016-12-27 23:34:00 Test Item Value Reference Range Interpretation Comments Potassium Lvl (test code = Potassium 4.6 3.5-5.1 Lvl) [facility] HospitalSecant TherapeuticsNOVANT HEALTH HUNTERSVILLE MEDICAL [id number] 23:34:00 Test Item Value Reference Range Interpretation Comments Calcium Lvl (test code = Calcium Lvl) 8.9 8.5-10.5 [facility] HospitalSecant TherapeuticsNOVANT HEALTH HUN[facility]SVIL[facility] MEDICAL [id number] 23:34:00 Test Item Value Reference Range Interpretation Comments CO2 (test code = CO2) 34 24-32 [facility]2016-12-27 23:34:00 Test Item Value Reference Range Interpretation Comments Albumin Lvl (test code = Albumin Lvl) 3.9 3.5-5.0 [facility] HospitalSecant TherapeuticsNOVANT HE[facility] HUN[facility]SV[facility] MED[facility] [id number] 23:34:00 Test Item Value Reference Range Interpretation Comments Alk Phos (test code = Alk Phos) 95 39-136 [facility]2016-12-27 23:34:00 Test Item Value Reference Range Interpretation Comments BUN (test code = BUN) 26 7-22 [facility] HospitalSecant TherapeuticsNOVANT [facility]UN[facility] MED[facility] [id number] 23:34:00 Test Item Value Reference Range Interpretation Comments Glucose Lvl (test code = Glucose Lvl) 109 70-99 [facility]2016-12-27 23:34:00 Test Item Value Reference Range Interpretation Comments A/G Ratio (test code = A/G Ratio) 1.1 0.7-1.6 [facility]2016-12-27 23:34:00 Test Item Value Reference Range Interpretation Comments ASPARTATE TRANSAMINASE 22 See_Comment [Aut omated message] (test code = ASPARTATE The s ystem which TRANSAMINASE) generated this result transmitted ref erence range: <=37. Th e reference range was not used to interpr et this result as normal/abnormal . [facility]2016-12-27 23:34:00 Test Item Value Reference Range Interpretation Comments Bili Total (test code = Bili Total) 0.9 0.2-1.3 [facility]2016-12-27 23:34:00 Test Item Value Reference Range Interpretation Comments Total Protein (test code = Total 7.5 6.4-8.4 Protein) [facility]2016-12-27 23:34:00 Test Item Value Reference Range Interpretation Comments AGAP (test code = AGAP) 9.6 10.0-20.0 [facility]2016-12-27 23:34:00 Test Item Value Reference Range Interpretation Comments ALANINE AMINOTRANSFERASE 28 See_Comment [A utomated message] (test code = ALANINE The sys tem which AMINOTRANSFERASE) generated this result transmitted ref erence range: <=65. Th e reference range was not used to int erpret this result as normal/abnormal . [place] [facility]wallAdznbzxHFYMXKFQZT2179-57-11 23:34:00 Test Item Value Reference Range Interpretation Comments MPV (test code = MPV) 8.6 7.4-10.4 [place] [facility] RockwallYggrnbdOLFOLWROAS9909-84-35 23:34:00 Test Item Value Reference Range Interpretation Comments MCHC (test code = MCHC) 32.9 32.0-36.0 [facility] RockwallPvfqsflENYBBWKCKJ6544-31-44 23:34:00 Test Item Value Reference Range Interpretation Comments Platelet (test code = Platelet) 207 133-450 [facility] RockwallCgqjcagXKPJGVBNMX2289-05-47 23:34:00 Test Item Value Reference Range Interpretation Comments MCH (test code = MCH) 28.3 pg 27.0-31.0 [facility] RockwallCyluvtqLQPITSJVJD0327-20-72 23:34:00 Test Item Value Reference Range Interpretation Comments RDW (test code = RDW) 15.2 11.5-14.5 [facility] RockwallEjtqhvsTIODWGYYZZ5402-77-83 23:34:00 Test Item Value Reference Range Interpretation Comments Hct (test code = Hct) 43.0 42.0-54.0 [facility] RockwallIqfnpvhKABOXYETSF3193-28-43 23:34:00 Test Item Value Reference Range Interpretation Comments MCV (test code = MCV) 86.2 80.0-94.0 [place] [id number] 23:34:00 Test Item Value Reference Range Interpretation Comments WBC X 10x3 (test code = WBC X 10x3) 7.6 3.7-10.4 [facility] RockwallXyxbwibGFJBNEWARH4463-59-29 23:34:00 Test Item Value Reference Range Interpretation Comments RBC X 10x6 (test code = RBC X 10x6) 4.99 4.70-6.10 [facility] RockwallGnjdfsrHXGQDOQVNB6065-77-87 23:34:00 Test Item Value Reference Range Interpretation Comments Hgb (test code = Hgb) 14.1 14.0-18.0 [place] [id number] 23:34:00 Test Item Value Reference Range Interpretation Comments Basophils (test code = 0.8 See_Comment [Aut omated message] The Basophils) system which ge nerated this result tra nsmitted reference range : <=1.0. The reference r lorena was not used to int erpret this result as normal/abnormal . [facility] RockwallLlrejydARVTEMRZLB5680-28-17 23:34:00 Test Item Value Reference Range Interpretation Comments Eosinophils (test code = 4.3 See_Comment [A utomated message] The Eosinophils) system which ge nerated this result tra nsmitted reference range : <=4.0. The reference r lorena was not used to int erpret this result as normal/abnormal . [facility] RockwallPgfyekiZVTBGOEKSY0384-66-23 23:34:00 Test Item Value Reference Range Interpretation Comments Monocytes (test code = Monocytes) 6.6 2.0-12.0 [facility] RockwallVsfpkmlNQDAEPNEBB1908-88-92 23:34:00 Test Item Value Reference Range Interpretation Comments Monocytes # (test code 0.5 See_Comment [Aut omated message] The = Monocytes #) system which generated this result tra nsmitted reference range : <=0.8. The reference r lorena was not used to int erpret this result as normal/abnormal . [facility] Rockwa[id number] 23:34:00 Test Item Value Reference Range Interpretation Comments Lymphocytes # (test code = Lymphocytes 1.9 1.0-5.5 #) [facility] RockwallCwfpfbbIKKRINYVVL7113-08-49 23:34:00 Test Item Value Reference Range Interpretation Comments Eosinophils # (test code 0.3 See_Comment [A utomated message] The = Eosinophils #) system whic h generated this result tra nsmitted reference range : <=0.5. The reference r lorena was not used to int erpret this result as normal/abnormal . [facility] RockwallNpzyweqBIEXLUJJYS6794-39-44 23:34:00 Test Item Value Reference Range Interpretation Comments Basophils # (test code 0.1 See_Comment [Aut omated message] The = Basophils #) system which generated this result tra nsmitted reference range : <=0.2. The reference r lorena was not used to int erpret this result as normal/abnormal . [facility] RockwallRnshdolZATUKEAYPA8903-61-62 23:34:00 Test Item Value Reference Range Interpretation Comments Segs-Bands # (test code = Segs-Bands #) 4.9 1.5-8.1 [facility] RockwallGzigswzTMMLXDPQOY7980-92-16 23:34:00 Test Item Value Reference Range Interpretation Comments Lymphocytes (test code = Lymphocytes) 24.3 20.0-40.0 [facility] RockwallAswpynbLEXIRTOPMW8898-59-75 23:34:00 Test Item Value Reference Range Interpretation Comments Segs (test code = Segs) 64.0 45.0-75.0 [facility] Notes Date/Time Note Provider Source 2016-02-08 16:55:00-00:00 Patient Name: KB BRADLEY [facility] : 1955; Age: 60 years Male MR: [id number] Study: Chest 1view DX Order Time: 02/08/2016 4:5 4 PM [employer] HELPER Clinical Indication: Chest pain. COMPARISON: None FINDINGS: Views: 1 LUNGS: There is increased nellie ng volume. There are no suspicious interstitial/airspace opacities. There are no pleural effusions. There is no pneumothorax. The pulmonary vasculature is normal. MEDIASTINUM: The cardiac silhouette is normal. T he trachea is midline. BONES: There are no clinically significant osseo us abnormalities noted. IMPRESSION: 1. No radiographic evidence of acute pulmonary d isease. Hyperinflation. SL: [id number]
[2022-09-24] MEDS ORDERED: NA CHLORIDE 0.9% 100 ML ONE (07:47)
[2022-09-24] MEDS ORDERED: KETOROLAC 30 MG/ML INJ ONE (07:47)
[2022-09-24] MEDS ORDERED: METHYLPREDNISOLONE 125 MG INJ ONE (07:47)
[2022-09-24] MEDS ORDERED: METHOCARBAMOL 1,000 MG/10 ML VIAL ONE (07:47)
[2022-09-24 08:07] LABS: Absolute Lymphocytes (CBC) 1.1 K/uL (0.7-4.9); Hematocrit 42.3 % (39.6-49.0); Lymphocytes % 8.3 % (15.3-44.8); MCV 83.5 fL (80-100); MPV 8.3 fL (7.6-11.3); Platelets 183 thou/uL (152-406); RBC Red Blood Cell Count 5.06 M/uL (4.33-5.43)
[2022-09-24 08:20] LABS: Potassium 4.1 mEq/L (3.5-5.1)
[2022-09-24 09:02] LABS: SARS-CoV-2 Antigen Rapid Res Negative (Negative)
--- NOTE | 2022-09-24 09:26 | RAD REPORT ---
EXAM DESCRIPTION: CT - Chest Abd Pelvis Wo Con - 09/24/2022 8:52 am CLINICAL HISTORY: Chest, abdominal and back pain COMPARISON: 2020 CT abdomen TECHNIQUE: Computed axial tomography of the chest, abdomen and pelvis was obtained. Oral contrast wa s given. IV contrast was not requested. All CT scans are performed using dose optimization technique as appropriate and may include automated exposure control or mA/KV adjustment according to patient size. FINDINGS: The evaluation of mediastinum, madelin, vessels and solid organs is limited secondary to the lack of IV contrast administration Mild to moderate patchy ground-glass opacities throughout the right lung. Left lung is clear. No mediastinal or hilar lymphadenopathy is seen. Small hiatal hernia A pleural effusion is not present. A pericardial effusion is not seen. The liver, spleen, pancreas, and adrenals appear grossly normal Multiple, bilateral small renal calculi. No hydronephrosis. A ureteral calculus is not seen. Normal appendix. There is no evidence of diverticulitis. Spondylolysis L5 IMPRESSION: Mild to moderate patchy ground-glass opacities throughout the right lung probably indic ating infection Multiple, bilateral small nonobstructing renal calculi
[2022-09-24] MEDS ORDERED: CEFTRIAXONE 1000 MG/VIAL ONE (10:05)
[2022-09-24] MEDS ORDERED: NA CHLORIDE 0.9% 50 ML ONE (10:05)
--- NOTE | 2022-09-24 11:32 | ER ---
Nurse's Notes [facility] Name: Eugene Phillip Jr Age: 66 yrs Sex: Male : 1955 Arrival Date: 09/24/2022 Time: 06:24 Bed 4 Private MD: Diagnosis: Other pneumonia, unspecified organism Presentation: 09/24 06:39 Chief complaint: Patient states: back spasms began this am. Coronavirus screen: Vaccine kl status: Patient reports receiving the 2nd dose of the covid vaccine. Ebola Screen: Patient negative for fever greater than or equal to 101.5 degrees Fahrenheit, and additional compatible Ebola Virus Disease symptoms. Initial Sepsis Screen: Does the patient meet any 2 criteria? No. Patient's initial sepsis screen is negative. Does the patient have a suspected source of infection? No. Patient's initial sepsis screen is negative. Risk Assessment: Do you want to hurt yourself or someone else? Patient reports no desire to harm self or others. 06:39 Method Of Arrival: Ambulatory kl 06:39 Acuity: ALESHA 4 kl 08:06 Onset of symptoms was September 24, 2022. me1 Triage Assessment: 06:43 General: Appears uncomfortable, Behavior is calm, cooperative. Pain: Complains of pain kl in back Pain currently is 3 out of 10 on a pain scale. at worst was 10 out of 10 on a pain scale. Quality of pain is described as crampy, sharp. Historical: - Allergies: 06:42 No Known Allergies; kl - Home Meds: 06:42 Norvasc Oral [Active]; losartan oral [Active]; kl - PMHx: 06:42 Hypercholesterolemia; Hypertensive disorder; Hypothyroidism; neuropathy; back pain; kl - Immunization history:: Adult Immunizations up to date. - Social history:: Smoking status: Patient/guardian denies using tobacco, the patient reports quitting approximately 15 years ago. Screenin:04 [facility] ED Fall Risk Assessment (Adult) Score/Fall Risk Level 0 - 2 = Low Risk. Abuse me1 screen: Denies threats or abuse. Nutritional screening: No deficits noted. Tuberculosis screening: No symptoms or risk factors identified. Assessment: 06:30 General: Appears in no apparent distress. uncomfortable, Behavior is calm, cooperative, jb4 appropriate for age. Pain: Complains of pain in low back area Pain does not radiate. Pain currently is 8 out of 10 on a pain scale. Neuro: Level of Consciousness is awake, alert, obeys commands, Oriented to person, place, time, situation. Cardiovascular: Patient's skin is warm and dry. Respiratory: Airway is patent Respiratory effort is even, unlabored, Respiratory pattern is regular, symmetrical. GI: No signs and/or symptoms were reported involving the gastrointestinal system. : No signs and/or symptoms were reported regarding the genitourinary system. EENT: No signs and/or symptoms were reported regarding the EENT system. Derm: Skin is intact, Skin is pink, warm \T\ dry. Musculoskeletal: Circulation, motion, and sensation intact. Range of motion: intact in all extremities. 07:03 Reassessment: Pt noted to desat to 82% on RA. Provider notified, Pt placed on 2L NC, jb4 now satting 94%. Vital Signs: 06:39 BP 173 / 82; Pulse 91; Resp 18; Temp 99.7; Pulse Ox 96% ; Weight 79.38 kg (M); Height 5 kl ft. 8 in. ; Pain 3/10; 08:04 BP 147 / 71; Pulse 75; Resp 18; Pulse Ox 97% on 2 lpm NC; me1 09:13 BP 112 / 51; Pulse 64; Resp 17; Pulse Ox 98% ; me1 10:45 BP 126 / 90; Pulse 64; Resp 18; Pulse Ox 94% on 2 lpm NC; ph 11:41 BP 133 / 71; Pulse 62; Resp 18; Temp 98; Pulse Ox 96% on R/A; ph 06:39 Body Mass Index 26.61 (79.38 kg, 172.72 cm) kl 06:39 Pain Scale: Adult kl ED Course: 06:27 Patient arrived in ED. kj1 06:42 Triage completed. kl 07:01 John Mike MD is Attending Physician. kdr 08:00 Initial lab(s) drawn, by me, sent to lab. Inserted saline lock: 22 gauge in right ph antecubital area, using aseptic technique. Blood collected. 08:04 Patient has correct armband on for positive identification. Bed in low position. Call me1 light in reach. Side rails up X 1. Provided Education on: POC. Verbalized understanding. . 08:04 No provider procedures requiring assistance completed. me1 08:05 Christine Rapp, RN is Primary Nurse. ph 08:06 Arm band placed on Patient placed in waiting room. me1 08:06 Chem 7 Sent. ph 08:06 CBC with Diff Sent. ph 08:43 Flu Sent. me1 08:43 SARS RAPID Sent. me1 08:54 Chest Abd Pelvis Wo Con In Process Unspecified. EDMS 10:25 Lactate w/ 2H reflex if indic. Sent. ph 11:46 IV discontinued, intact, bleeding controlled, No redness/swelling at site. Pressure me1 dressing applied. Administered Medications: 08:05 Drug: Methocarbamol IVPB 1 grams Route: IVPB; Infused Over: 1 hrs; Site: right ph antecubital; 09:05 Follow up: Response: No adverse reaction; IV Status: Completed infusion ph 08:06 Drug: MethylPrednisoLONE IVP 125 mg Route: IVP; Site: right antecubital; ph 11:41 Follow up: Response: No adverse reaction ph 08:07 Not Given (Patient Refused): Ketorolac IVP 15 mg IVP once ph 10:25 Drug: Rocephin - Rocephin (cefTRIAXone) IVPB 1 grams Route: IVPB; Infused Over: 30 ph mins; Site: right antecubital; 11:05 Follow up: Response: No adverse reaction; IV Status: Completed infusion ph Medication: 08:04 VIS not applicable for this client. me1 Outcome: 11:32 Discharge ordered by . kdr 11:42 Discharged to home ambulatory, with family. ph 11:42 Condition: good 11:42 Discharge instructions given to patient, family, Instructed on discharge instructions, follow up and referral plans. medication usage, Demonstrated understanding of instructions, follow-up care, medications, Prescriptions given X 2. 11:47 Patient left the ED. me1 Signatures: Dispatcher [employer] Dipti Lala RN RN kl Rittger, Kevin, MD MD kdr Hall, Patricia, RN RN ph Bryson, James, RN RN jb4 Jackson, Kandis 1 Carmencita Mack RN RN me1
--- NOTE | 2022-09-24 11:32 | EDPHYS ---
Physician Documentation [facility] Name: Eugene Phillip Jr Age: 66 yrs Sex: Male : 1955 Arrival Date: 09/24/2022 Time: 06:24 Bed 4 Private MD: ED Physician John Mike HPI: 09/24 08:04 This 66 yrs old Male presents to ER via Ambulatory with complaints of Back Pain - kdr SEVERE SPASMS. 08:04 The patient has a history of back spasms and disc disease in his low back. Patient has kdr had recommendations for surgery in the past but has been reluctant to pursue that remedy. This morning around 5 AM the patient began to have back spasms again. There was nothing specifically that precipitated the onset of the symptoms. Patient is otherwise been in his usual state of health. Overall this is been a problem is ongoing but intermittent for years. Patient is nontoxic-appearing on initial presentation. Onset: The symptoms/episode began/occurred suddenly, this morning. Severity of symptoms: At their worst the symptoms were moderate severe incapacitating in the emergency department the symptoms are unchanged. The patient has experienced similar episodes in the past, multiple times. The patient has not recently seen a physician. Historical: - Allergies: 06:42 No Known Allergies; kl - Home Meds: 06:42 Norvasc Oral [Active]; losartan oral [Active]; kl - PMHx: 06:42 Hypercholesterolemia; Hypertensive disorder; Hypothyroidism; neuropathy; back pain; kl - Immunization history:: Adult Immunizations up to date. - Social history:: Smoking status: Patient/guardian denies using tobacco, the patient reports quitting approximately 15 years ago. ROS: 08:04 Constitutional: Negative for fever, chills, and weight loss, Eyes: Negative for injury, kdr pain, redness, and discharge, ENT: Negative for injury, pain, and discharge, Neck: Negative for injury, pain, and swelling, Cardiovascular: Negative for chest pain, palpitations, and edema, Respiratory: Negative for shortness of breath, cough, wheezing, and pleuritic chest pain, Abdomen/GI: Negative for abdominal pain, nausea, vomiting, diarrhea, and constipation, : Negative for injury, bleeding, discharge, and swelling, MS/Extremity: Negative for injury and deformity, Skin: Negative for injury, rash, and discoloration, Neuro: Negative for headache, weakness, numbness, tingling, and seizure activity. Psych: Negative for depression, anxiety, suicide ideation, homicidal ideation, and hallucinations, Allergy/Immunology: Negative for hives, rash, and allergies, Endocrine: Negative for neck swelling, polydipsia, polyuria, polyphagia, and marked weight changes, Hematologic/Lymphatic: Negative for swollen nodes, abnormal bleeding, and unusual bruising. 08:04 Back: Positive for pain at rest, pain with movement, of the low back area, At the time of my examination the patient had minimal symptoms and pain. Exam: 08:04 Constitutional: This is a well developed, well nourished patient who is awake, alert, kdr and in no acute distress. Head/Face: Normocephalic, atraumatic. Eyes: Pupils equal round and reactive to light, extra-ocular motions intact. Lids and lashes normal. Conjunctiva and sclera are non-icteric and not injected. Cornea within normal limits. Periorbital areas with no swelling, redness, or edema. Chest/axilla: Normal chest wall appearance and motion. Nontender with no deformity. No lesions are appreciated. Cardiovascular: Regular rate and rhythm with a normal S1 and S2. No gallops, murmurs, or rubs. Normal PMI, no JVD. No pulse deficits. Respiratory: Lungs have equal breath sounds bilaterally, clear to auscultation and percussion. No rales, rhonchi or wheezes noted. No increased work of breathing, no retractions or nasal flaring. Abdomen/GI: Soft, non-tender, with normal bowel sounds. No distension or tympany. No guarding or rebound. No evidence of tenderness throughout. Back: No spinal tenderness. No costovertebral tenderness. Full range of motion. Skin: Warm, dry with normal turgor. Normal color with no rashes, no lesions, and no evidence of cellulitis. MS/ Extremity: Pulses equal, no cyanosis. Neurovascular intact. Full, normal range of motion. Neuro: Awake and alert, GCS 15, oriented to person, place, time, and situation. Cranial nerves II-XII grossly intact. Motor strength 5/5 in all extremities. Sensory grossly intact. Cerebellar exam normal. Normal gait. Psych: Awake, alert, with orientation to person, place and time. Behavior, mood, and affect are within normal limits. Vital Signs: 06:39 BP 173 / 82; Pulse 91; Resp 18; Temp 99.7; Pulse Ox 96% ; Weight 79.38 kg (M); Height 5 kl ft. 8 in. ; Pain 3/10; 08:04 BP 147 / 71; Pulse 75; Resp 18; Pulse Ox 97% on 2 lpm NC; me1 09:13 BP 112 / 51; Pulse 64; Resp 17; Pulse Ox 98% ; me1 10:45 BP 126 / 90; Pulse 64; Resp 18; Pulse Ox 94% on 2 lpm NC; ph 11:41 BP 133 / 71; Pulse 62; Resp 18; Temp 98; Pulse Ox 96% on R/A; ph 06:39 Body Mass Index 26.61 (79.38 kg, 172.72 cm) kl 06:39 Pain Scale: Adult kl MDM: 08:04 Data reviewed: vital signs, nurses notes. kdr 11:32 Patient medically screened. kdr 11:33 ED course: Patient was greatly improved in the ED and was discharged in good condition. kdr Patient and were happy with the care provided the plan for discharge and follow-up. 09/24 07:26 Order name: CBC with Diff; Complete Time: 08:31 kdr 09/24 07:26 Order name: Chem 7; Complete Time: 08:31 kdr 09/24 08:36 Order name: SARS RAPID; Complete Time: 09:48 ss 09/24 08:36 Order name: Flu; Complete Time: 09:48 ss 09/24 09:49 Order name: Lactate w/ 2H reflex if indic.; Complete Time: 10:53 kdr 09/24 08:28 Order name: Chest Abd Pelvis Wo Con; Complete Time: 09:48 EDMS Administered Medications: 08:05 Drug: Methocarbamol IVPB 1 grams Route: IVPB; Infused Over: 1 hrs; Site: right ph antecubital; 09:05 Follow up: Response: No adverse reaction; IV Status: Completed infusion ph 08:06 Drug: MethylPrednisoLONE IVP 125 mg Route: IVP; Site: right antecubital; ph 11:41 Follow up: Response: No adverse reaction ph 08:07 Not Given (Patient Refused): Ketorolac IVP 15 mg IVP once ph 10:25 Drug: Rocephin - Rocephin (cefTRIAXone) IVPB 1 grams Route: IVPB; Infused Over: 30 ph mins; Site: right antecubital; 11:05 Follow up: Response: No adverse reaction; IV Status: Completed infusion ph Disposition Summary: 09/24/22 11:32 Discharge Ordered Location: Home kdr Problem: new kdr Symptoms: have improved kdr Condition: Stable kdr Diagnosis - Other pneumonia, unspecified organism kdr Followup: kdr - With: Private Physician - When: 2 - 3 days - Reason: If symptoms return, Further diagnostic work-up, Recheck today's complaints, Continuance of care, Re-evaluation by your physician Discharge Instructions: - Discharge Summary Sheet kdr - Community-Acquired Pneumonia, Adult kdr Forms: - Medication Reconciliation Form kdr - Thank You Letter kdr - Antibiotic Education kdr - Patient Portal Instructions kdr - Leadership Thank You Letter kdr Prescriptions: - Augmentin 875-125 mg Oral Tablet - take 1 tablet by ORAL route every 12 hours for 10 days; 20 tablet; Refills: 0, kdr Product Selection Permitted - Zofran 4 mg Oral Tablet - take 1 tablet by ORAL route every 4-6 hours As needed; 12 tablet; Refills: 0, kdr Product Selection Permitted Signatures: Dispatcher [employer] Dipti Lala RN RN kl John Mkie MD MD kdr Hall, Patricia, RN RN ph Corrections: (The following items were deleted from the chart) 08:28 07:27 Chest Abdomen Pelvis W [id number].[id number] ordered. EDMS EDMS
[2022-09-24 11:59] VITALS: BP 133/71; TEMP 98; O2SAT 96
== END 2022-09-24 11:47 | disposition home or self-care (01) ==
LOC: ER 06:24
DX: J18.8 Other pneumonia, unspecified organism (principal); Z20.822 Contact with and (suspected) exposure to COVID-19; I10 Essential (primary) hypertension
CPT/HCPCS: 96365; 96367; 85025; 80048; 36415; 83605; 87804 ×2; 71250; 74176; 96375; 99284; 87811; J2930; J2800; J0696